=== PATIENT | female | born 1980 | race Caucasian/White ===

== ENCOUNTER 2016-12-09 21:35 | Emergency (ER) | payer MEDICAID ==
[~2016-12-09] VITALS: Ht 160 cm; Wt 68.0 kg
[2016-12-09] MEDS ORDERED: NKM (21:53)
--- NOTE | 2016-12-09 22:05 | Emergency Room Report ---
History of Present Illness General Chief Complaint: Flu Like Symptoms Source: Patient Present Illness HPI Patient ill for 2 days. Muscle aches, nausea without vomiting, + minimal loose stools. Taking motrin with help. Pain in her body 5/10, generalized, aching, helped with motrin but fairly constant. Some headache. No purulent drainage from nose. No signigicant cough, not productive. No wheezes. No ear pain. No sig sore throat. States skin hurts to touch before taking motrin. No rashes. No dysuria. She teaches pre-school. Kids not exceptionally ill when last with them. No recent travel, unusual foods. Worried about possible influenza. Able to eat and drink without problems. Not . 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 Last Menstrual Period: 11/20/16 Now: No : 0 Para: 0 Reviewed Nursing Documentation: PMH: Agreed, PSxH: Agreed Nursing Documentation-PMH Past Medical History: No History, Except For Review of Systems All Other Systems: negative except mentioned in HPI Physical Exam Vital Signs Date Time Temp Pulse Resp B/P Pulse Ox O2 Delivery O2 Flow Rate FiO2 12/09/16 21:49 98.4 85 14 118/78 97 Room Air Sp02 EP Interpretation: reviewed, normal General Appearance: well appearing, no apparent distress, GCS 15 Head: normocephalic, atraumatic Eyes: bilateral eye PERRL, bilateral eye normal inspection ENT: hearing grossly normal, normal pharynx, normal voice Neck: full range of motion, supple Respiratory: no respiratory distress, speaking full sentences Gastrointestinal: normal inspection, normal bowel sounds, non tender Musculoskeletal: digits/nails normal, gait/station normal, normal range of motion Neurologic: alert, oriented x3, normal gait, grossly normal Psychiatric: mood/affect normal Skin: no rash Medical Decision Making Diagnostic Impression: Primary Impression: Viral syndrome ER Course Patient myalgias and symptoms involving several organ systems. Suggestive of viral syndrome. Denies dysuria. She does get relief with Motrin. Tolerating PO well. Focus on treating symptoms. If worsened, told to f/u PMD or return here. Patient stable for outpatient observation and treatment. Last Vital Signs Date Time Temp Pulse Resp B/P Pulse Ox O2 Delivery O2 Flow Rate FiO2 12/09/16 22:40 98.4 14 118/78 97 Room Air 12/09/16 22:10 85 Status: unchanged Disposition: HOME, SELF-CARE Condition: Stable Scripts Acetaminophen (Tylenol) 325 Mg Tablet 650 MG ORAL Q6H Y for Prn Pain/Headache/Temp > 101, #30 TAB 0 Refills Prov: Navin Dias M.D. 12/09/16 Ibuprofen* (MOTRIN*) 600 Mg Tablet 600 MG ORAL Q6H Y for For Pain, #20 TAB Prov: Navin Dias M.D. 12/09/16 Navin Dias M.D. Dec 09, 2016 22:05
[2016-12-09] MEDS ORDERED: TYLENOL325 MG ORAL (22:06)
[2016-12-09] MEDS ORDERED: IBUPROFEN600 MG ORAL (22:06)
[2016-12-09 22:10] VITALS: BP 118/78
[2016-12-09 22:40] VITALS: BP 118/78
== END 2016-12-09 22:40 | disposition home or self-care (01) ==
LOC: EMR 22:00
DX: B34.9 Viral infection, unspecified (principal)
CPT/HCPCS: 99282